=== PATIENT | female | born 1970 | race American Indian/Alaskan Native ===

== ENCOUNTER 2022-03-15 11:01 | Emergency (ER) | payer OTHER ==
[2022-03-15] MEDS ORDERED: PHENYTOIN 1,000 MG in SODIUM CHLORIDE 0.9% 250ML 250 ML IV ONE (11:41)
[2022-03-15] MEDS ORDERED: SODIUM CHLORIDE 0.9% 1000 ML 1,000 ML IV ONE (11:41)
[2022-03-15] MEDS ORDERED: ACETAMINOPHEN 325 MG TAB PO ONE (11:48)
[2022-03-15] MEDS ORDERED: PHENYTOIN 1,000 MG in SODIUM CHLORIDE 0.9% 100 ML IV ONE (12:00)
[2022-03-15 12:35] LABS: Hematocrit 38.9 % (30.3-42.9); Hemoglobin 13.2 gm/dl (10.1-14.3); Mean Corpuscular HGB Conc 34 % (30-34); Mean Corpuscular Volume 92 fl (79-97); Platelet Count 239 K/mm3 (140-440); Red Blood Count 4.25 M/mm3 (3.65-5.03); Red Cell Distribution Width 14.2 % (13.2-15.2)
--- NOTE | 2022-03-15 13:12 | XRay Report ---
CHEST 1 VIEW INDICATION: DYSPNEA . COMPARISON: None FINDINGS: SUPPORT DEVICES: None. HEART: Within normal limits. LUNGS/PLEURA: Minimal streaky bibasilar airspace disease with otherwise clear lungs. ADDITIONAL FINDINGS: None. IMPRESSION: 1. Lung findings as above. Signer Name: Lonnie Copeland MD Signed: 03/15/2022 1:08 PM Workstation Name: [id number]
[2022-03-15 13:13] LABS: Total Cells Counted 100
[2022-03-15 13:14] LABS: Band Neutrophils # (Manual) 0.1 K/mm3; Basophils % (Manual) 0 % (0.0-1.8); Eosinophils % (Manual) 0 % (0.0-4.3); RBC Morphology Normal
[2022-03-15 13:15] LABS: Albumin 4.3 g/dL (3.9-5); Calcium 8.3 mg/dL (8.4-10.2); Platelet Estimate Consistent w Auto
[2022-03-15] MEDS ORDERED: ALBUTEROL 2.5 MG/3 ML NEBU IH ONE (14:22)
--- NOTE | 2022-03-15 16:07 | Emergency Department Report ---
ED Seizure HPI - General Chief Complaint: Seizure Stated Complaint: SEIZURE/CHEST PAIN Time Seen by Provider: 03/15/22 11:39 Source: patient, family Mode of arrival: Ambulatory Limitations: No Limitations - History of Present Illness Initial Comments: Patient walked into the ER and stated that she feel like she had a SZ last night. Was brought in by a friend to the ER. When the patient sat down she started to have a gran mal Sz lasting about 1-2 minutes and now is post-ictal. Febrile noted MD Complaint: seizure -: days(s) Description of Episode: tonic-clonic movement Witnessed:: Yes Trauma: No Seizure History: known seizure disorder, history of non-compliance Place: home Possible Precipitating Event: none Associated Symptoms: fever/chills - Related Data Home Medications Medication Instructions Recorded Confirmed Last Taken Divalproex ER [DepaKOTE ER] 1,000 mg PO QDAY 03/15/22 03/15/22 Unknown Previous Rx's Medication Instructions Recorded Last Taken Type Acetaminophen [Tylenol] 325 mg PO Q6H PRN #30 cap 03/15/22 Unknown Rx Albuterol Sulfate [Albuterol 0.63% 0.63 mg IH TID PRN #20 ml 03/15/22 Unknown Rx NEBS] Azithromycin [Zithromax Z-WILLIAM] 250 mg PO DAILY #6 03/15/22 Unknown Rx Divalproex Sodium [Depakote] 500 mg PO BID #30 03/15/22 Unknown Rx Allergies Allergy/AdvReac Type Severity Reaction Status Date / Time Penicillins AdvReac Unknown Verified 03/15/22 11:48 ED Review of Systems ROS: Stated complaint: SEIZURE/CHEST PAIN Other details as noted in HPI Constitutional: denies: chills, fever Eyes: denies: eye pain, eye discharge, vision change ENT: denies: ear pain, throat pain Respiratory: denies: cough, shortness of breath, wheezing Cardiovascular: denies: chest pain, palpitations Endocrine: no symptoms reported Gastrointestinal: denies: abdominal pain, nausea, diarrhea Genitourinary: denies: urgency, dysuria, discharge Musculoskeletal: denies: back pain, joint swelling, arthralgia Skin: denies: rash, lesions Neurological: denies: headache, weakness, paresthesias Psychiatric: denies: anxiety, depression Hematological/Lymphatic: denies: easy bleeding, easy bruising ED Past Medical Hx - Past Medical History Previous Medical History?: Yes Hx Hypertension: Yes Hx Seizures: Yes Hx Asthma: Yes - Surgical History Past Surgical History?: Yes Additional Surgical History: Hysterectomy - Medications Home Medications: Home Medications Medication Instructions Recorded Confirmed Last Taken Type Acetaminophen [Tylenol] 325 mg PO Q6H PRN #30 cap 03/15/22 Unknown Rx Albuterol Sulfate [Albuterol 0.63% 0.63 mg IH TID PRN #20 ml 03/15/22 Unknown Rx NEBS] Azithromycin [Zithromax Z-WILLIAM] 250 mg PO DAILY #6 03/15/22 Unknown Rx Divalproex ER [DepaKOTE ER] 1,000 mg PO QDAY 03/15/22 03/15/22 Unknown History Divalproex Sodium [Depakote] 500 mg PO BID #30 03/15/22 Unknown Rx ED Physical Exam - General Limitations: No Limitations General appearance: alert, in no apparent distress - Head Head exam: Present: atraumatic, normocephalic - Eye Eye exam: Present: normal appearance - ENT ENT exam: Present: mucous membranes moist - Neck Neck exam: Present: normal inspection - Respiratory Respiratory exam: Present: normal lung sounds bilaterally. Absent: respiratory distress - Cardiovascular Cardiovascular Exam: Present: regular rate, normal rhythm. Absent: systolic murmur, diastolic murmur, rubs, gallop - GI/Abdominal GI/Abdominal exam: Present: soft, normal bowel sounds - Extremities Exam Extremities exam: Present: normal inspection - Back Exam Back exam: Present: normal inspection - Neurological Exam Neurological exam: Present: alert, oriented X3 - Psychiatric Psychiatric exam: Present: normal affect, normal mood - Skin Skin exam: Present: warm, dry, intact, normal color. Absent: rash ED Course Vital Signs 03/15/22 03/15/22 11:08 15:55 Temperature 101.7 F H Pulse Rate 88 Pulse Rate [ 86 Posterior] Respiratory 24 Rate Respiratory 19 Rate [Posterior ] Blood Pressure 108/69 [Right] O2 Sat by Pulse 95 Oximetry ED Medical Decision Making - Lab Data Result diagrams: 03/15/22 11:54 03/15/22 11:54 - Radiology Data Radiology results: report reviewed, image reviewed - Medical Decision Making work up negative fro sepsis fever control, pt refused any shots or meds, requested to [place] as she is from [place], refused further work up Critical care attestation.: If time is entered above; I have spent that time in minutes in the direct care of this critically ill patient, excluding procedure time. ED Disposition Clinical Impression: Seizure, Fever, Pneumonia Disposition: 01 HOME / SELF CARE / HOMELESS Is pt being admited?: No Does the pt Need Aspirin: No Condition: Stable Instructions: Non-Epileptic Seizures, Adult, Bacterial Pneumonia (ED) Prescriptions: Albuterol Sulfate [Albuterol 0.63% NEBS] 0.63 mg IH TID PRN #20 ml PRN Reason: Wheezing Divalproex Sodium [Depakote] 500 mg PO BID #30 Acetaminophen [Tylenol] 325 mg PO Q6H PRN #30 cap PRN Reason: Fever >101 Azithromycin [Zithromax Z-WILLIAM] 250 mg PO DAILY #6
[2022-03-15 16:38] VITALS: BP 103/57
== END 2022-03-15 16:38 | disposition home or self-care (01) ==
LOC: ED 11:01
DX: R56.9 Unspecified convulsions (principal); R05.9 Cough, unspecified; J18.9 Pneumonia, unspecified organism; I10 Essential (primary) hypertension; J45.909 Unspecified asthma, uncomplicated; Z88.0 Allergy status to penicillin; Z79.899 Other long term (current) drug therapy
CPT/HCPCS: 36415; 71045; 80053; 80185; 82140; 85007; 85025; 87040; 94640; 96365; 99284; J1165; J7030; J7050; 94644; 96361